=== PATIENT | male | born 1990 | race African-American/Black ===

== ENCOUNTER 2018-06-01 12:03 | Emergency (ER) | payer MEDICAID ==
[~2018-06-01] VITALS: Ht 182.9 cm; Wt 68.2 kg
[2018-06-01 12:09] VITALS: Ht 182.9 cm; Wt 68.2 kg
[2018-06-01] MEDS ORDERED: KETOROLAC 30 MG INJ IV STA (12:13)
[2018-06-01] MEDS ORDERED: ONDANSETRON 4 MG INJ IV STA (12:13)
[2018-06-01] MEDS ORDERED: SOD CHLORIDE 0.9% 1,000 ML IV STA (12:13)
[2018-06-01] MEDS ORDERED: CAPSAICIN 0.025% 60 GM CR TOP SCH (12:30)
[2018-06-01] MEDS ORDERED: HALOPERIDOL 5 MG INJ IV ONE (12:30)
--- NOTE | 2018-06-01 12:36 | ERD ---
ER Documentation Chief Complaint Chief Complaint INTRACTALBE N/V THIS MORNING. SMOKE MARIJUANA LAST NIGHT HPI This is a 27-year-old male with no past medical history. He presents to the emergency department stating that he has had multiple episodes of nonbloody nonbilious emesis over the past 4 hours. Indicates he ate at a restaurant roughly 9 PM. He awoke with nausea but denied any abdominal pain. He said no fevers or shaking or chills. The patient states he smokes marijuana on a daily basis but is never had any similar symptoms. He had no recent travel. He denies any shortness of breath. He denies a productive or nonproductive cough. He denied any hematemesis or melanotic stools. ROS All systems reviewed and are negative except as per history of present illness. Allergies Allergies: Coded Allergies: No Known Allergy (Unverified , 06/01/18) PMhx/Soc Medical and Surgical Hx: pt denies Medical Hx, pt denies Surgical Hx Hx Alcohol Use: No Hx Substance Use: No Hx Tobacco Use: No Smoking Status: Never smoker Physical Exam Vitals Vital Signs Date Temp Pulse Resp B/P (MAP) Pulse Ox O2 O2 Flow FiO2 Time Delivery Rate 06/01/18 98.7 90 18 140/80 100 12:09 (100) Physical Exam Constitutional:Well-developed. Well-nourished. Patient retching HEENT:Normocephalic. Atraumatic.Pupils were equal round reactive to light. Very dry mucous membranes.No tonsillar exudates. Neck: No nuchal rigidity. No lymphadenopathy. No posterior cervical spine tenderness or step-offs. Respiratory: Not using accessory muscles of respiration.Lungs were clear to auscultation bilaterally. No rhonchi. No rales. No wheezing. Cardiovascular: Regular rate regular rhythm.No murmurs. No rubs were appreciated.S1, S2 normal. Distal pulses are palpable 2+ bilaterally. GI: Abdomen was soft. Nontender. Non Distended. No pulsatile abdominal masses or bruits. No rebound. No guarding. Bowel sounds were present and normal. Muscle skeletal: Full range of motion of both the upper and lower extremities bilaterally.Normal muscle tone.No assymetrical calf tenderness or swelling. Skin: No petechia, no purpura. No lesions on the palms or the soles of the feet. No maculopapular rash. NEURO: Patient was alert, awake, orientated x3.No facial droop. Gait observed and normal with no ataxia.Speech had regular rate and rhythm. No focal neurological deficits. Result Diagram: 06/01/18 1215 Results 24 hrs Laboratory Tests Test 06/01/18 12:15 White Blood Count 8.8 10^3/ul Red Blood Count 5.35 10^6/ul Hemoglobin 14.5 g/dl Hematocrit 45.5 % Mean Corpuscular Volume 85.0 fl Mean Corpuscular Hemoglobin 27.1 pg Mean Corpuscular Hemoglobin Concent 31.9 g/dl Red Cell Distribution Width 13.1 % Platelet Count 212 10^3/UL Mean Platelet Volume 11.0 fl Immature Granulocytes % 0.700 % Neutrophils % 78.0 % Lymphocytes % 16.9 % Monocytes % 4.1 % Eosinophils % 0.1 % Basophils % 0.2 % Nucleated Red Blood Cells % 0.0 /100WBC Immature Granulocytes # 0.060 10^3/ul Neutrophils # 6.9 10^3/ul Lymphocytes # 1.5 10^3/ul Monocytes # 0.4 10^3/ul Eosinophils # 0.0 10^3/ul Basophils # 0.0 10^3/ul Nucleated Red Blood Cells # 0.0 10^3/ul Current Medications Medications Dose Sig/Chuck Start Time Status Last (Trade) Ordered Route PRN Stop Time Admin Dose Reason Admin Sodium 1,000 ml @ Q1H STAT 06/01/18 06/01/18 Chloride 1,000 mls/hr IV 12:13 12:24 06/01/18 13:12 Ondansetron 4 mg ONCE STAT 06/01/18 DC 06/01/18 HCl (Zofran IV 12:13 12:21 Inj) 06/01/18 12:15 Ketorolac 30 mg ONCE STAT 06/01/18 DC 06/01/18 Tromethamine IV 12:13 12:22 (Toradol) 06/01/18 12:15 Haloperidol 5 mg ONCE ONCE 06/01/18 DC 06/01/18 (Haldol) IV 12:30 12:22 06/01/18 12:31 Capsaicin 1 applic ONCE TOP 06/01/18 (Theragen) 12:30 Procedures/MDM This is a 27-year-old male that presented to the emergency department with nausea vomiting. The patient was placed on a security monitor continuous pulse oximetry and IV access was established by nursing staff. The patient was inducing his emesis and retching. Verbal de-escalation was unable to calm the patient down. He received IV fluids Zofran Toradol but no improvement of his symptoms. The patient was given Haldol and capsaicin cream as he did appear to have cyclic vomiting syndrome. His symptoms had significantly improved. He was now able to tolerate oral intake. There is no evidence of pancreatitis. Chest radiograph was obtained and there is no evidence of pneumomediastinum. The patient was discharged home in fair condition. They were instructed to return to the emergency department at any time if there was any worsening of their condition. The patient stated they would follow up with their PCP in the next 24-48 hours to initiate a suitable medication regimen under the care of their PCP as well as to allow their PCP to monitor any drug reactions. The patient was discharged home with prescriptions after they gave informed consent to the new medication. They were also fully informed by myself on the adverse e ffects and adverse drug interactions in order to provide adequate safeguards to prevent possible adverse reactions to medications. Departure Diagnosis: Primary Impression: Nausea and vomiting Vomiting type: cyclical vomiting Vomiting Intractability: non-intractable Qualified Codes: G43.A0 - Cyclical vomiting, not intractable Additional Impression: Cyclic vomiting syndrome Vomiting Intractability: non-intractable Nausea presence: with nausea Qualified Codes: G43.A0 - Cyclical vomiting, not intractable Condition: ROSALVA Mendez MD Jun 01, 2018 12:36
[2018-06-01] MEDS ORDERED: METOCLOPRAMIDE 10 MG INJ IV STA (12:41)
[2018-06-01] MEDS ORDERED: morphine 4 MG/ML VIAL IV STA (12:41)
[2018-06-01] MEDS ORDERED: ONDA4TAB14 PO (14:11)
[2018-06-01 15:41] VITALS: BP 136/87; PULSE 95; RESP 18
== END 2018-06-01 15:45 | disposition home or self-care (01) ==
LOC: E/R 12:03
DX: G43.A0 Cyclical vomiting, in migraine, not intractable (principal); R10.9 Unspecified abdominal pain
CPT/HCPCS: 36415; 71045; 80053; 82150; 83690; 85025; 85610; 85730; 96361; 96374; 96375; J1630; J1885; J2270; J2405; J2765; J7030; Z7502; Z7610